=== PATIENT | female | born 1970 | race Caucasian/White ===

== ENCOUNTER 2018-02-02 13:48 | Outpatient (RCR) | payer BC, SELFPAY ==
--- NOTE | 2018-02-02 14:52 | HMH.PTOPEV ---
PT Outpatient Evaluation Rehab PT Outpatient Evaluation Start: 02/02/18 14:42 Freq: Status: Active Protocol: Document 02/02/18 14:42 DIAMOND (Rec: 02/02/18 14:52 DIAMOND [id number]) Electronically Signed By Jostin Tran, PT 02/02/18 14:42 Outpatient Therapy Subjective History Subjective History Patient is a 47 year old female presenting to outpatient PT with reports of L ankle pain S/P L ankle inversion ankle sprain after a fall at home approximately 2 weeks ago. Pt reports she has progressed from NWB with crutches to ambulation in large CAM walker, and will progress to ambulation in shoes with brace in 2 weeks per MD orders. Most recent diagnostics negative for fracture. Chief Complaint Pain Stiff Swelling Symptom Type Burning Symptoms Relieved By Rest/Positioning Ice OTC Meds Symptoms Aggravated By Standing Physical Activity Walking Prior Functional Limitations None Current Functional Limitations Housework Standing Squatting Recreation Activity Walking Stairs Balance Symptom Description Constant but Variable Level of pain today (0-10) 3 Pain scale - at its best (0-10) 2 Pain scale - at its worst (0-10) 8 Ankle/Foot Eval Gait Observation General Gait Pattern Observation Antalgic Gait Palpation Tenderness left ATF TTP positive ROM right Ankle/Foot ROM Reason Not Measured Within Functional Limits Great Toe ROM Reason Not Measured Within Functional Limits left Ankle/Foot Dorsiflexion w/Knee Extended 7 Active Range Motion (degrees) Ankle/Foot Dorsiflexion w/Knee Extended 10 Passive Range (degrees) Ankle/Foot Plantar Flexion Active Range 60 of Motion (degrees) Ankle/Foot Eversion Active Range of 22 Motion (degrees) Ankle/Foot Eversion Passive Range of 25 Motion (degrees) Ankle/Foot Inversion Active Range of 27 Motion (degrees) Ankle/Foot Inversion Passive Range of 28 Motion (deg
== END 2018-02-02 13:49 | disposition home or self-care (01) ==
LOC: PT 13:48
PROVIDERS: Visit Provider Podiatrist
DX: S93.402A Sprain of unspecified ligament of left ankle, initial encounter (principal)
CPT/HCPCS: 97163

== ENCOUNTER → 2020-01-23 09:16 | Outpatient (CLI) | payer BC, SELFPAY ==
--- NOTE | 2020-01-23 09:20 | XR_ITS ---
PROCEDURE: XR HIP RT 2-3V W/PELVIS CLINICAL INDICATION: COMPARISON: No exams were available for comparison FINDINGS: No fracture or dislocation is evident. No significant degenerative change. There is no significant joint space narrowing. There is a small ossification adjacent to the top of the greater trochanter probably a small avulsed osteophyte. No lytic or blastic change. Unremarkable soft tissues. IMPRESSION: No acute findings. Dictated by: Dr. Mauricio Bhatt MD 01/23/2020 09:43 Dr. Mauricio Bhatt MD in [place] 01/23/2020 09:43
--- NOTE | 2020-01-23 09:20 | XR_ITS ---
PROCEDURE: XR HIP LT 2-3V W/PELVIS CLINICAL INDICATION: ANNMARIE HIP PAIN,BURSITIS COMPARISON: No exams were available for comparison FINDINGS: No fracture or dislocation is evident. No significant degenerative change other than minor osteophytic spurring lateral border of the greater trochanter. There is no significant joint space narrowing. No lytic or blastic change. Unremarkable soft tissues. IMPRESSION: No acute findings. Dictated by: Dr. Mauricio Bhatt MD 01/23/2020 09:41 Dr. Mauricio Bhatt MD in [facility] 01/23/2020 09:41
== END ==
PROVIDERS: PCP Nurse Practitioner Family; Visit Provider Nurse Practitioner Family
DX: M25.552 Pain in left hip (principal); M25.551 Pain in right hip; M70.62 Trochanteric bursitis, left hip; M70.61 Trochanteric bursitis, right hip
CPT/HCPCS: 73502

== ENCOUNTER 2020-03-16 08:30 | Outpatient (RCR) | payer BC, SELFPAY ==
--- NOTE | 2020-01-31 16:09 | HMH.PTOPEV ---
PT Outpatient Evaluation Rehab PT Outpatient Evaluation Start: 01/31/20 15:05 Freq: Status: Active Protocol: Document 01/31/20 15:06 LOULOUMARILY (Rec: 01/31/20 16:09 SUDHAKARKARLIE [id number]) Electronically Signed By Joseph Marks, PT 01/31/20 15:06 Outpatient Therapy Subjective History Subjective History This is the initial Physical Therapy evaluation for Adriana Neville. Pt is a 49 y/o female referred to PT for c/o B hip pain. Pt reports insidious onset of pain ~ 1 year ago w/ increase over the last 6 months. Pt does not report any trauma or aggravating factors for pain or increase in pain. Pt reports pain in L>R and pain travels down the lateral side of BLE almost to the knee and is a burning pain. Chief Complaint Pain Symptom Type Ache,Sharp,Burning Symptoms Relieved By Rest/Positioning Symptoms Aggravated By Physical Activity Prior Functional Limitations None Current Functional Limitations Sleeping,Standing,Recreation Activity,Walking,Stairs Symptom Description Intermittent Level of pain today (0-10) 4 Pain scale - at its best (0-10) 0 Pain scale - at its worst (0-10) 8 Hip/Knee Eval Gait Observation General Gait Pattern Observation No Deviations/Normal Assistive Device Assistive Devices None / NA Palpation Tenderness bilateral Hip Palpation Findings Tenderness,Trigger Point MMT Hip Flexion Strength Grade 4 Good Hip Abduction Strength Grade 4 Good Hip Adduction Strength Grade 4 Good Hip External Rotation Strength Grade 4 Good Hip Internal Rotation Strength Grade 4 Good Knee Extension Strength Grade 4 Good Knee Flexion Strength Grade 4 Good ROM Hip ROM Reason Not Measured Within Functional Limits Knee ROM Reason Not Measured Within Functional Limits Special Tests Hip Bowstring (Cram) Test Negative Left,Negative Right Hip [place] Test Positive Left,Positive Right Hip Piriformis Test Negative Left,Negative Right Sciatic Nerve Tension Test Negative Right,Positive Left Hip Scouring (Quadrant) Test Negative Right,Positive Left Outpatient Therapy Assessment Impairments Problems/Impairmments Palpation Tenderness,Impaired Strength,Impaired Walking, Impaired Household Care, Impaired Stair Cl
== END 2020-03-16 08:35 | disposition home or self-care (01) ==
LOC: PT 08:30
PROVIDERS: PCP Nurse Practitioner Family; Visit Provider Internal Medicine Adolescent Medicine
DX: M25.552 Pain in left hip (principal); M25.551 Pain in right hip
CPT/HCPCS: 20560; 97010; 97014; 97033; 97035; 97110; 97163; G0283

== ENCOUNTER → 2020-11-26 13:48 | Outpatient (CLI) | payer BC, SELFPAY ==
[2020-11-26 14:34] LABS: Hemoglobin A1C 5.4 % (4.0-6.0)
[2020-11-26 14:53] LABS: Basophils % 0.6 % (0.1-2.0); Eosinophils # 0.1 K/mm3 (0.0-0.4); Eosinophils % 0.8 % (0.1-12.0); Hematocrit 40.2 % (37.0-47.0); Hemoglobin 12.6 g/dL (12.2-16.2); Lymphocytes # 2.2 K/mm3 (0.7-4.5); Mean Corpuscular HGB Conc 31.3 g/dL (31.8-35.4); Mean Corpuscular Hemoglobin 27.9 pg (27.0-31.2); Mean Corpuscular Volume 89.1 fl (81-99); Mean Platelet Volume 8.6 fl (7.4-10.4); Monocytes # 0.3 K/mm3 (0.1-1.0); Monocytes % 3.5 % (1.7-9.3); Neutrophils # 4.8 K/mm3 (1.8-7.8); Neutrophils % 65.1 % (37.0-80.0); Platelet Count 338 K/mm3 (142-424); Red Blood Count 4.51 M/mm3 (4.20-5.40); White Blood Count 7.4 K/mm3 (4.8-10.8)
[2020-11-26 14:58] LABS: Chloride 105 mmol/L (98-107); Potassium 4.8 mmoL/L (3.5-5.1); Sodium 139 mmol/L (136-145)
[2020-11-26 15:01] LABS: Alanine Aminotransferase 21 U/L (12-78); Albumin Level 4.3 g/dl (3.5-5.0); Albumin/Globulin Ratio 1.7 (1.1-1.8); Alkaline Phosphatase 68 U/L (38-126); Anion Gap 13.8 mEq/L (5-15); Aspartate Amino Transferase 29 U/L (14-36); Bilirubin,Total 0.3 mg/dl (0.2-1.3); Blood Urea Nitrogen 11 mg/dl (7-17); Calcium 9.5 mg/dl (8.4-10.2); Carbon Dioxide 25 mmol/L (22.0-30.0); Estimated Glomerular Filt Rate 89 ml/min (>60); GFR (African American) 108 ML/MIN (>60); Globulin 2.5 g/dL (1.3-3.2); Glucose 89 mg/dl (74-100); Magnesium 1.7 mg/dl (1.6-2.3); Total Protein,Serum 6.8 g/dl (6.3-8.2)
[2020-11-26 15:18] LABS: Triiodothryronine (T3) Uptake 28 % (23.5-40.5)
[2020-11-26 15:19] LABS: Free Thyroxine Index 2.7 ug/dL (5.93-13.13); T4 (Thyroxine) 9.6 ug/dl (5.53-11.0)
[2020-11-26 15:27] LABS: 25-OH Vitamin D, Total 42.5 ng/mL (30-100)
[2020-11-26 15:32] LABS: Thyroid Stimulating Hormone 2.44 uIU/mL (0.465-4.68)
[2020-11-26 15:38] LABS: Ferritin 6.82 ng/ml (6.24-137)
[2020-11-26 16:00] LABS: Vitamin B12 594 pg/mL (239-931)
== END ==
PROVIDERS: Visit Provider Nurse Practitioner Family
DX: R55 Syncope and collapse (principal); R63.4 Abnormal weight loss; Z98.84 Bariatric surgery status
CPT/HCPCS: 36415; 80053; 82306; 82607; 82728; 83036; 83735; 84436; 84443; 84479; 85025

== ENCOUNTER → 2022-11-12 10:46 | Outpatient (CLI) | payer BC, SELFPAY ==
--- NOTE | 2022-11-12 10:50 | MM_ITS ---
PROCEDURE INFORMATION: Exam: Bilateral Screening 3D Mammography Exam date and time: 11/12/2022 11:00 AM Age: 52 years old Clinical indication: Baseline screening mammogram TECHNIQUE: Imaging protocol: Bilateral Screening tomosynthesis and 2D mammography including computer-aided detection (CAD) when performed. COMPARISON: No relevant prior studies available. FINDINGS: MAMMOGRAPHY: Breast composition: The breast is heterogeneously dense, which may obscure small masses. Mass: None. Architectural distortion: No new or suspicious architectural distortion. Calcifications: No new or suspicious calcifications are present Asymmetric density: No new or suspicious asymmetric density is present Skin thickening: None. Axillary adenopathy: None. IMPRESSION: No mammographic evidence of malignancy. Recommend annual screening mammography unless otherwise clinically indicated. ASSESSMENT: BI-RADS category 1: Negative
== END ==
PROVIDERS: PCP Nurse Practitioner Family; Visit Provider Nurse Practitioner Family
DX: Z12.31 Encounter for screening mammogram for malignant neoplasm of breast (principal)
CPT/HCPCS: 77063; 77067

== ENCOUNTER 2023-05-07 09:04 | Day surgery (SDC) | payer BC, SELFPAY ==
[2023-05-05 12:46] VITALS: BMI 20.9
[2023-05-07] VITALS (7 sets, daily range): BP systolic 86–120; BP diastolic 58–94; PULSE 48–78; RESP 17–18; TEMP 36.4–36.5; O2SAT 98–100
[2023-05-07 09:21] LABS: Urine Pregnancy, HCG Qual. Negative (Negative)
[2023-05-07] MEDS: LACTATED RINGERS 1000ML 1,000 ML 25 ML IV (09:25)
--- NOTE | 2023-05-07 10:02 | HMH.SCOPE ---
Procedure: Date: 05/07/23 Patient Date of :: 1970 Procedure Performed:: Screening colonoscopy Indications:: Colon cancer screening Performing Provider:: Jai Ty MD Referring Provider:: Alicia Willis APRN Sedation:: Propofol Procedure:: After placing the patient in the left lateral decubitus position, the colonoscopy was gently inserted into the rectum and under direct visualization advanced to the cecum which was identified by transillumination in the right lower quadrant, identification of the ileocecal valve, appendiceal orifice, and cecal strap. Color, texture, mucosa, and anatomy of the colon were carefully examined with the scope. Findings:: Anal canal: normal Rectum: normal Sigmoid colon: normal without polyps or inflammatory changes Descending colon: normal without polyps or inflammatory changes Splenic flexure: normal Transverse colon: normal without polyps or inflammatory changes Hepatic flexure: normal Ascending colon: normal without polyps or inflammatory changes Cecum: normal Terminal ileum: not visualized Impression: Normal colonoscopy Recommendations:: Follow up examination in about TEN years or so, sooner if clinically indicated. Complications:: None Estimated blood obtained (mL): 0 Colonoscopy Component Colonoscopy Component Was a colonoscopy performed during today's procedure?: Yes Recommended follow up colonoscopy of at least 10 years?: Yes
== END 2023-05-07 10:45 | disposition home or self-care (01) ==
PROVIDERS: PCP Nurse Practitioner Family; Visit Provider Internal Medicine Gastroenterology
PROC: 0DJD8ZZ Inspection of Lower Intestinal Tract, Via Natural or Artificial Opening Endoscopic (ICD-10-PCS; CPT 45378; principal; 2023-05-07 10:00)
DX: Z12.11 Encounter for screening for malignant neoplasm of colon (principal)
CPT/HCPCS: 45378; 81025

== ENCOUNTER 2024-02-03 07:24 | Outpatient (CLI) | payer BC, SELFPAY ==
--- NOTE | 2024-02-03 07:43 | US_ITS ---
PROCEDURE INFORMATION: Exam: US Abdomen, Limited; Right Upper Quadrant Exam date and time: 02/03/2024 7:34 AM Age: 53 years old Clinical indication: Abnormal findings; Abnormal lab test; Elevated liver enzymes; Prior surgery; Surgery date: 6+ months; Surgery type: Gb TECHNIQUE: Imaging protocol: Real time ultrasound of the abdomen with image documentation. Limited exam focused on the right upper quadrant. COMPARISON: No relevant prior studies available. FINDINGS: Liver: Normal. No masses. The liver measures 15.4 cm craniocaudal. Gallbladder: Status post cholecystectomy. Biliary ducts: Normal. No stones. No dilation. The common bile duct measures 0.4 cm in diameter. Pancreas: Visualized pancreas is unremarkable. Right kidney: Normal. No mass. No hydronephrosis. The right kidney measures 9.3 cm in length. IMPRESSION: 1. Status post cholecystectomy. 2. Otherwise normal right upper quadrant ultrasound.
== END 2024-02-03 23:59 | disposition home or self-care (01) ==
PROVIDERS: PCP Nurse Practitioner Family; Visit Provider Nurse Practitioner Family
DX: R74.8 Abnormal levels of other serum enzymes (principal)
CPT/HCPCS: 76705

== ENCOUNTER 2024-02-22 00:37 | Emergency (ER) | payer BC, SELFPAY ==
[2024-02-22 00:38] VITALS: BP 124/72; PULSE 69; RESP 18; TEMP 36.6; O2SAT 98; BMI 20.5
--- NOTE | 2024-02-22 00:52 | ED_ITS ---
Discharge Plan Prescriptions Prescriptions: New cyclobenzaprine 5 mg tablet 5 mg PO TID PRN (Reason: muscle spasm) Qty: 30 0RF Referrals Follow up/Referrals: Lila Willis APRN [Primary Care Provider] - See instructions Activity Restrictions/Add. Instructions Additional Instructions/Restrictions: Please follow-up with your primary care provider. Please return to the emergency department if you develop any new or worsening symptoms or become concerned for your health. Please take your methocarbamol as needed for spasm, please take the cyclobenzaprine in addition as needed for severe symptoms. Do not drive or operate heavy machinery as the cyclobenzaprine can make you sleepy. Clinical Impressions Clinical Impression: Muscle spasm Print Language Print Language: Lithuanian Discharge ED Provider: Memo Evans Adult HPI General Chief complaint: PAIN Stated complaint: pain in legs Time Seen by Provider: 02/22/24 00:52 Mode of Arrival: Ambulatory Source of Information: Patient Limitations: No Limitations Description of Symptoms (Recalled from ER Triage Doc. by RN): 53 F presents from home with c/o BLE muscle spasm and pain. Patient states she was almost asleep when this happened. She took 2 500mg Robaxin for the pain, but does not think this is helping. Patient reports history of these spasms, but not this severe. Patient was ambulatory from [facility] without assistance. History of Present Illness HPI narrative: 53-year-old female with history of muscle spasms presents for leg pain. She reports she had sudden onset of leg pain and cramping and tightening in the left anterior thigh, worse than normal. She reports that then went to the bilateral anterior thighs. She took two 500 mg tabs of Robaxin and reports that her legs are now starting to feel significantly better. She denies any recent fever or illness, reports that she is well-hydrated as far she is aware. She denies any recent nausea vomiting diarrhea. Denies any trauma to the legs, denies back pain Related Data Previous Rx's ?Medication ?Instructions ?Recorded cyclobenzaprine 5 mg tablet 5 mg PO TID PRN muscle spasm #30 02/22/24 tabs Allergies Allergy/AdvReac Type Severity Reaction Status Date / Time No Known Allergies Allergy Verified 05/07/23 09:18 [facility] Disclaimer: The information contained in this section may have been updated after the patient was seen, as this information can be updated by other users. Surgical History History of gastric bypass Family History Other Family history of diabetes mellitus type II Family history of hyperlipidemia Family history of hypertension Family history of myocardial infarction Social History Smoking Status: Current every day smoker tobacco type: cigarettes alcohol intake: current alcohol intake frequency: a few times a week substance use type: denies use current occupational status: employed Travel in the last 8 weeks: None household members: family housing: house Other Medical History Have you received the Pneumonia Vaccine: No ROS Obtained: Yes All systems reviewed & no additional complaints except as documented Physical Exam General General appearance: alert and in no apparent distress Head Head exam: atraumatic and normocephalic Eye Eye exam: Present normal appearance, PERRL and EOMI ENT ENT exam: Present normal oropharynx and normal external ear exam Neck Neck exam: Present normal inspection and full ROM Chest Chest inspection: Present normal inspection and symmetric chest wall rise; Absent tenderness Respiratory Respiratory exam: Present normal lung sounds bilaterally; Absent respiratory distress Cardiovascular Cardiovascular exam: Present regular rate and normal rhythm Abdominal Exam Abdominal exam: Present soft; Absent distention, tenderness or guarding Extremities Exam Extremities exam: Present normal inspection; Absent edema or joint swelling Back Exam Back exam: Present normal inspection; Absent tenderness Neurological Exam Neurological exam: Present alert and oriented X3; Absent motor sensory deficit Psychiatric Psychiatric exam: Present normal affect and normal mood Skin Skin exam: Present warm, dry and normal color Lymphatic Lymphatic Findings: no adenopathy Medical Decision Making Medical Records Medical records reviewed: Yes I reviewed the patient's medical records. Screening: Per USPSTF and CDC recommendations, given the prevalence of disease in our region, it is our hospital?s policy to screen for HIV and viral Hepatitis for all patients aged 18 and over and those with ongoing risk factors. [place] Inquiry Pt receiving controlled substance: No [place] was queried for this patient: No Vital Signs: 02/22/24 00:38 Temperature 97.9 F Temperature Source Oral Pulse Rate [Left] 69 Respiratory Rate 18 Blood Pressure [Right Arm] 124/72 Blood Pressure Mean [Right Arm] 89 Blood Pressure Source [Right Arm] Automatic Cuff Blood Pressure Position [Right Arm] Standing 02 Sat by Pulse Oximetry 98 Oxygen Delivery Method Room Air Lab Data Lab results reviewed: Yes I reviewed the patient's lab results. Orders (Tests/Meds): ED MEDICATIONS Generic Name Dose Route Start Last Admin Trade Name Sabrina PRN Reason Stop Dose Admin Cyclobenzaprine HCl 10 mg 02/22/24 01:00 02/22/24 01:01 Cyclobenzaprine 10mg Tablet PO 02/22/24 01:01 10 mg ONCE ONE Administration Medical Decision Narrative: 53-year-old female with history of muscle spasm presents with muscle spasm of the bilateral anterior thighs. It is improving after she took Robaxin at home.. History was obtained via interactive discussion with patient, chart review. On arrival, patient is [afebrile, hemodynamically stable, satting appropriately, alert, oriented x4, GCS 15], moving all extremities spontaneously. Full physical exam performed and significant for no significant physical exam abnormalities. Differential includes but is not limited to muscle spasm, electrolyte derangement, vascular abnormality. Patient was given 10 mg of cyclobenzaprine for symptomatic management and correction of underlying abnormalities. Blood work was considered, but deemed unnecessary due to improving symptoms, chronicity of symptoms. Given patient history, exam and workup, patient's presentation most likely represents acute on chronic muscle spasms. Patient was discharged with prescription for cyclobenzaprine, return precautions given.. Procedures Risk/Benefits of Procedure(s) Were Explained: Yes Critical Care Critical Care Time Critical Care Time: No
[2024-02-22] MEDS: CYCLOBENZAPRINE 10MG TABLET 10 MG PO (01:01)
[2024-02-22 01:04] VITALS: BP 107/66; PULSE 60; RESP 16; TEMP 36.5; O2SAT 97
== END 2024-02-22 01:04 | disposition home or self-care (01) ==
PROVIDERS: Emergency Provider Emergency Medicine; PCP Nurse Practitioner Family
DX: M79.661 Pain in right lower leg (principal); M79.662 Pain in left lower leg; M62.838 Other muscle spasm
CPT/HCPCS: 99283